=== PATIENT | female | born 2000 | race Caucasian/White ===

== ENCOUNTER 2020-07-04 10:30 | Emergency (ER) | payer OTHER, SELFPAY ==
[2020-07-04 10:45] VITALS: BP 124/77; PULSE 87; RESP 20; TEMP 37.1; O2SAT 100
--- NOTE | 2020-07-04 11:06 | ED.GENADULT ---
HPI - General Adult General Chief complaint: Unspecified Stated complaint: exposure to std Time Seen by Provider: 07/04/20 10:45 Source: patient and RN notes reviewed Mode of arrival: ambulatory Limitations: no limitations History of Present Illness HPI narrative: Patient presents today requesting STD testing today. She has no symptoms or complaints, but wanted to come in for routine evaluation. In the past year, she has had 3 sexual partners, male and female. Most recent has been a female. She does not have protected intercourse. Denies abdominal pain, vaginal discharge, urinary symptoms, dyspareunia, lesions or rashes. She is currently on her menstrual cycle. complaint: STD testing Related Data Allergies Allergy/AdvReac Type Severity Reaction Status Date / Time No Known Allergies Allergy Verified 07/04/20 10:50 Review of Systems Review of Systems: Narrative: CONSTITUTIONAL: Denies body aches, fever, chills, or sweats. EYES: Denies visual changes, redness, or discharge. ENT: Denies rhinorrhea, congestion, sore throat, or otalgia. CARDIOVASCULAR: Denies chest pain, palpitations, or edema. RESPIRATORY: Denies cough or dyspnea. GASTROINTESTINAL: Denies abdominal pain, nausea, vomiting, or diarrhea. GENITOURINARY: Denies dysuria or hematuria. Denies vaginal discharge or dyspareunia SKIN: Denies rash, itching, or wounds. MUSCULOSKELETAL: Denies back pain, joint pain, or myalgia. NEUROLOGIC: Denies headache, numbness, tingling, or weakness. PSYCH: Denies depression or anxiety. PMFSH Comments At time of signature, I have reviewed and agree with nursing past medical, surgical, social and family history unless otherwise noted. Please see nursing chart for further information. There is no relevant family history pertinent to the presenting complaint Exam Narrative: Exam Narrative: GENERAL: Well-appearing, well-nourished, and in no acute distress. HEAD: Normocephalic, atraumatic. EYES: EOMI. No redness or drainage. Conjunctivae normal. ENT: Mucous membranes pink and moist. NECK: Normal AROM. CHEST: No respiratory distress. Clear to auscultation. HEART: Regular rate and rhythm. No murmur appreciated. Normal peripheral pulses. ABDOMEN: Soft, nontender, nondistended, normal active bowel sounds. MUSCULOSKELETAL: No bony tenderness. EXTREMITIES: Normal range of motion. No edema. SKIN: Warm, dry, no rash. Capillary refill normal. Normal skin turgor. NEURO: No focal deficits. Alert and oriented x3. Gait steady. PSYCH: Normal affect. No signs of depression or anxiety. Course Course Emergency Course: Patient aware that urgent care has capabilities for gonorrhea, chlamydia, and trichomonas testing, but does not have capabilities for any further testing. She has been referred to the local health department for further testing. She will be treated prophylactically with Rocephin, azithromycin, and a prescription for Flagyl. Anticipatory guidance given. Vital Signs Vital signs: Vital Signs Temperature 98.8 F 07/04/20 10:45 Pulse Rate 87 07/04/20 10:45 Respiratory Rate 07/04/20 10:45 Blood Pressure 124/77 07/04/20 10:45 Pulse Oximetry 100 07/04/20 10:45 Temperature 98.8 F 07/04/20 10:45 Pulse Rate 87 07/04/20 10:45 Respiratory Rate 07/04/20 10:45 Blood Pressure 124/77 07/04/20 10:45 Pulse Oximetry 100 07/04/20 10:45 Reviewed. Pt has been instructed to follow up with her PCP regarding her elevated blood pressure today. Medical Decision Making Differential Diagnosis Differential Diagnosis: Gonorrhea, chlamydia, trichomonas, syphilis, HPV, herpes, routine STD screening Vital Signs Vital Signs: Vital Signs Temperature 98.8 F 07/04/20 10:45 Pulse Rate 87 07/04/20 10:45 Respiratory Rate 07/04/20 10:45 Blood Pressure 124/77 07/04/20 10:45 Pulse Oximetry 100 07/04/20 10:45 Temperature 98.8 F 07/04/20 10:45 Pulse Rate 87 07/04/20 10:45 Respiratory Ra
[2020-07-04] MEDS: AZITHROMYCIN 250 MG TABLET 1000 MG PO (11:15)
[2020-07-04] MEDS: cefTRIAXone 250 MG VIAL IM (11:16)
[2020-07-04] MEDS: LIDOCAINE HCL 1% LOCAL INJ 20 ML VIAL IM (11:16)
== END 2020-07-04 11:41 | disposition home or self-care (01) ==
PROVIDERS: Emergency Provider Nurse Practitioner
DX: Z20.2 Contact with and (suspected) exposure to infections with a predominantly sexual mode of transmission (principal)
CPT/HCPCS: 87491; 87591; 87661; 96372; 99214; A9270; G0463; J0696